=== PATIENT | female | born 1980 | race American Indian/Alaskan Native ===

== ENCOUNTER 2017-11-22 14:36 | Outpatient (CLI) | payer BC ==
[2017-11-22 14:59] VITALS: BP 131/77
--- NOTE | 2017-11-22 16:09 | Ultrasound Report ---
FINAL REPORT PROCEDURE: US OB BPP WO NON-STRESS TECHNIQUE: Sonographic evaluation for breathing, movement, tone, and amniotic fluid volume was performed. CPT 88208 HISTORY: decreased movement COMPARISON: No prior studies are available for comparison. FINDINGS: There is a single living intrauterine gestation currently visualized in vertex presentation with heart rate of 143 beats per minute. The amount of amniotic fluid subjectively appears normal. A score of 2 was given for breathing, 2 for movements, 2 for tone and 2 for amniotic fluid volume for a total biophysical profile score of 8/8. IMPRESSION: Biophysical profile score 8/8. Single living intrauterine gestation currently visualize vertex presentation with a heart rate of 143 beats per minute.
--- NOTE | 2017-11-22 16:13 | Ultrasound Report ---
FINAL REPORT PROCEDURE: US OB LIMITED TECHNIQUE: Real-time limited sonographic examination was performed for evaluation of size, position, heartbeat, fluid volume for each fetus with image documentation (1 or more fetuses). CPT 89812 HISTORY: decreased movment. Evaluate amniotic fluid index COMPARISON: No prior studies are available for comparison. FINDINGS: There is a single living intrauterine gestation currently visualized in the vertex presentation with heart rate of 136 beats per minute. Amniotic fluid index is 20.7 centimeters. Subjectively the amount of amniotic fluid appears normal. Further evaluation was neither requested nor performed. IMPRESSION: Single living intrauterine gestation currently visualized vertex presentation with a heart rate of 136 beats per minute. Subjectively the amount of amniotic fluid appears normal. Amniotic fluid index measures 20.7 centimeters which is within normal limits. Further evaluation was neither requested nor performed.
== END 2017-11-22 16:25 | disposition home or self-care (01) ==
LOC: EDBD → TRG 14:36
PROVIDERS: ATTEND Obstetrics & Gynecology
DX: O36.8130 Decreased fetal movements, third trimester, not applicable or unspecified (principal); O47.1 False labor at or after 37 completed weeks of gestation; Z3A.38 38 weeks gestation of pregnancy
CPT/HCPCS: 59025; 76815; 76819; 82962